=== PATIENT | male | born 1950 | race Caucasian/White ===

== ENCOUNTER 2017-08-31 19:41 | Emergency (ER) | payer MEDICARE, OTHER ==
[2017-08-31 19:51] VITALS: TEMP 98.2
[2017-08-31 20:25] VITALS: BP 172/116; PULSE 68; RESP 24; O2SAT 94
== END 2017-08-31 21:06 | DRG 156 ==
LOC: ED 19:41
DX: T17.298A Other foreign object in pharynx causing other injury, initial encounter (principal)
CPT/HCPCS: 71045; 99282

== ENCOUNTER 2018-05-06 12:56 | Emergency (ER) | payer MEDICARE, OTHER ==
[2018-05-06 13:33] LABS: BASOPHILS % (AUTO) 1 % (0-3); EOSINOPHILS % (AUTO) 3 % (0-9); HEMATOCRIT 45 % (39-53); HEMOGLOBIN 13.8 gm/dl (13.5-17.7); MEAN CORPUSCULAR HEMOGLOBIN 27.2 pg (27.0-32.0); MEAN CORPUSCULAR VOLUME 88 fL (80-100); MONOCYTES % (AUTO) 10.9 % (0-12); NEUTROPHILS % (AUTO) 63.3 % (37-80)
[2018-05-06 13:51] LABS: ALKALINE PHOSPHATASE 123 IU/L (46-116); ALT 9 IU/L (14-63); AST 18 IU/L (15-37); BILIRUBIN,TOTAL 0.6 mg/dl (0.2-1.0); BLOOD UREA NITROGEN 24 mg/dl (7-18); CALCIUM 8.3 mg/dl (8.5-10.1); CHLORIDE 107 mMol/L (98-107); CREATININE 1.42 mg/dl (0.80-1.30); GLUCOSE 92 mg/dl (74-106); SODIUM 142 mMol/L (136-145); TROP I < 0.017 ng/ml (0.000-0.056)
[2018-05-06 14:24] VITALS: RESP 20
[2018-05-06] MEDS ORDERED: SOLUMEDROL 125 MG/2 ML 125 MG/2 ML PDS IV ONE (14:30)
[2018-05-06] MEDS ORDERED: AZITHROMYCIN 250 MG TAB PO ONE (14:30)
[2018-05-06 14:33] VITALS: O2SAT 93
[2018-05-06] MEDS ORDERED: SOLUMEDROL 125 MG/2 ML 125 MG/2 ML PDS ONE (14:34)
[2018-05-06] MEDS ORDERED: AZITHROMYCIN 250 MG TAB ONE (14:34)
[2018-05-06] MEDS ORDERED: SODIUM CHLORIDE 0.9% FLUSH 10 ML SOL IV PRN (14:45)
[2018-05-06 15:14] VITALS: BP 120/97; PULSE 73; TEMP 96.5
== END 2018-05-06 15:25 | DRG 192 ==
LOC: ED 12:56
DX: J44.1 Chronic obstructive pulmonary disease with (acute) exacerbation (principal); R40.2362 Coma scale, best motor response, obeys commands, at arrival to emergency department; R40.2142 Coma scale, eyes open, spontaneous, at arrival to emergency department; R40.2242 Coma scale, best verbal response, confused conversation, at arrival to emergency department
CPT/HCPCS: 36415; 71045; 80053; 84484; 85025; 96374; 99284; J2930; A9270-GY

== ENCOUNTER 2018-05-19 13:15 | Emergency (ER) | payer MEDICARE, OTHER ==
[2018-05-19 13:36] LABS: BASOPHILS % (AUTO) 0 % (0-3); EOSINOPHILS % (AUTO) 2 % (0-9); HEMATOCRIT 44 % (39-53); HEMOGLOBIN 13.6 gm/dl (13.5-17.7); LYMPHOCYTES % (AUTO) 12.5 % (10-50); MEAN CORPUSCULAR HEMOGLOBIN 27.2 pg (27.0-32.0); MEAN CORPUSCULAR HGB CONC 30.6 gm/dl (32.0-36.0); MEAN CORPUSCULAR VOLUME 89 fL (80-100); MONOCYTES % (AUTO) 10.5 % (0-12); NEUTROPHILS % (AUTO) 74.2 % (37-80)
[2018-05-19 14:02] LABS: ALBUMIN 2.5 gm/dl (3.4-5.0); CALCIUM 8.1 mg/dl (8.5-10.1); CREATININE 1.34 mg/dl (0.80-1.30); TOTAL PROTEIN 6.5 gm/dl (6.4-8.2)
[2018-05-19] MEDS ORDERED: SOLUMEDROL 125 MG/2 ML 125 MG/2 ML PDS IV ONE (14:10)
[2018-05-19] MEDS ORDERED: SOLUMEDROL 125 MG/2 ML 125 MG/2 ML PDS ONE (14:14)
[2018-05-19] MEDS ORDERED: ALBUTEROL/IPRATROPIUM 1 VIAL SOL INH ONE (14:31)
[2018-05-19 14:32] LABS: ABG PH 7.29 (7.35-7.45)
[2018-05-19] MEDS ORDERED: ATROPINE 0.1 MG/ML SOL ONE (14:42)
[2018-05-19] MEDS ORDERED: ETOMIDATE 2 MG/ML SOL IV ONE ×4 (14:43→16:08)
[2018-05-19] MEDS ORDERED: ROCURONIUM BROMIDE 10 MG/ML SOL IV ONE ×4 (14:43→16:08)
[2018-05-19] MEDS ORDERED: SUCCINYLCHOLINE CHLORIDE 20 MG/ML SOL IV ONE ×2 (14:43→16:08)
[2018-05-19] MEDS ORDERED: SODIUM CHLORIDE 0.9% 1000ML 1,000 ML IV SCH (14:45)
[2018-05-19] MEDS ORDERED: MIDAZOLAM 2 MG/2 ML SOL ONE (14:56)
[2018-05-19] MEDS ORDERED: FENTANYL 100MCG/2ML SOL ONE (15:15)
[2018-05-19 16:03] VITALS: PULSE 64
[2018-05-19] MEDS ORDERED: FENTANYL 100MCG/2ML SOL IV ONE (16:08)
[2018-05-19] MEDS ORDERED: MIDAZOLAM 2 MG/2 ML SOL IV ONE (16:08)
[2018-05-19 16:17] VITALS: BP 128/96; RESP 14; O2SAT 92
[2018-05-19] MEDS ORDERED: SODIUM CHLORIDE 0.9% 1000ML 1,000 ML IV ONE (16:17)
[2018-05-19 17:44] VITALS: TEMP 97.7
== END 2018-05-19 16:20 | disposition short-term general hospital (02) | DRG 189 ==
LOC: ED 13:15
DX: J96.91 Respiratory failure, unspecified with hypoxia (principal)
CPT/HCPCS: 31500; 36415; 36600; 71045; 80053; 82803; 85025; 96365; 96374; 96375; 99291; J0330; J0461; J2250; J2930; J3010; A9270-GY; J3490

== ENCOUNTER 2018-06-28 23:06 | Inpatient (IN) | payer MEDICARE, OTHER ==
[2018-06-28] MEDS ORDERED: SODIUM CHLORIDE 0.9% 1000ML 1,000 ML IV SCH (23:45)
[2018-06-29 00:08] LABS: BASOPHILS % (AUTO) 1 % (0-3); EOSINOPHILS % (AUTO) 0 % (0-9); HEMATOCRIT 54 % (39-53); HEMOGLOBIN 16.4 gm/dl (13.5-17.7); LYMPHOCYTES % (AUTO) 14.5 % (10-50); MEAN CORPUSCULAR HEMOGLOBIN 27.8 pg (27.0-32.0); MEAN CORPUSCULAR HGB CONC 30.4 gm/dl (32.0-36.0); MEAN CORPUSCULAR VOLUME 91 fL (80-100); MONOCYTES % (AUTO) 8.8 % (0-12); NEUTROPHILS % (AUTO) 75.7 % (37-80)
[2018-06-29 00:22] LABS: CALCIUM 9.5 mg/dl (8.5-10.1); CARBON DIOXIDE 29.6 mEq/L (21-32); CREATININE 1.78 mg/dl (0.80-1.30); CRP INFLAMMATORY 4.81 mg/dl (0.00-0.33); TROP I 0.052 ng/ml (0.000-0.056)
[2018-06-29 00:29] LABS: APPEARANCE,URINE Clear; BILIRUBIN,URINE 2+ (NEGATIVE); COLOR,URINE Amber; GLUCOSE, URINE (UA) NEGATIVE (NEGATIVE); KETONES,URINE NEGATIVE (NEGATIVE); LEUKOCYTE ESTERASE ,URINE NEGATIVE (NEGATIVE); NITRATE,URINE NEGATIVE (NEGATIVE); OCCULT BLOOD,URINE NEGATIVE (NEG-TRACE)
[2018-06-29 00:42] LABS: BACTERIA 2+ (< 1+); CRYSTALS NEGATIVE (0-3 AVE/HPF); EPITHELIAL CELLS NEGATIVE (SQUAMOUS); ICTOTEST,URINE NEGATIVE (NEGATIVE); RBC,URINE 0-1 (0-3AV/HPF); WBC,URINE 0-1 (0-5AV/HPF)
[2018-06-29 01:33] LABS: TROP I 0.046 ng/ml (0.000-0.056)
[2018-06-29] MEDS ORDERED: SODIUM CHLORIDE 0.45% 1000 ML 1,000 ML IV ONE (01:57)
[2018-06-29] MEDS ORDERED: LOPERAMIDE HYDROCHLORIDE 2 MG CAP PO PRN (02:23)
[2018-06-29 04:18] LABS: CREATININE 1.61 mg/dl (0.80-1.30)
[2018-06-29] MEDS ORDERED: FUROSEMIDE 40 MG SOL IV ONE (04:41)
[2018-06-29] MEDS: SODIUM CHLORIDE 0.9% 1000ML 1,000 ML IV SCH ×2 (04:48→06:36)
[2018-06-29] MEDS: SODIUM CHLORIDE 0.45% 1000 ML 1,000 ML IV SCH ×4 (04:51→07:48)
[2018-06-29 06:18] LABS: CREATININE 1.45 mg/dl (0.80-1.30)
[2018-06-29 08:39] LABS: CREATININE 1.69 mg/dl (0.80-1.30)
[2018-06-29] MEDS ORDERED: VENLAFAXINE HCL 150 MG CER PO SCH (09:00)
[2018-06-29] MEDS ORDERED: TETRABENAZINE 12.5 MG PO SCH (09:00)
[2018-06-29] MEDS: DEXTROSE 1000 ML 1,000 ML IV SCH ×2 (09:39→16:48)
[2018-06-29 10:30] LABS: ABG PH 7.31 (7.35-7.45)
[2018-06-29 12:37] LABS: ABG PH 7.33 (7.35-7.45)
[2018-06-29 16:27] LABS: CARBON DIOXIDE 29.9 mEq/L (21-32); CREATININE 1.35 mg/dl (0.80-1.30); POTASSIUM 3.5 mMol/L (3.5-5.1)
[2018-06-29] MEDS ORDERED: DEXTROSE 1000 ML 1,000 ML IV SCH (17:15)
[2018-06-29] MEDS: SODIUM CHLORIDE 0.9% FLUSH 10 ML SOL IV SCH (18:30)
[2018-06-29 19:19] LABS: ABG PH 7.37 (7.35-7.45)
[2018-06-29] MEDS ORDERED: CEFTRIAXONE 1 GM PDS 1 GM in SODIUM CHLORIDE 0.9% 50 ML 50 ML IV ONE (19:28)
[2018-06-29] MEDS ORDERED: AZITHROMYCIN 500 MG PDS 500 MG in SODIUM CHLORIDE 0.9% 250 ML 250 ML IV ONE (19:28)
[2018-06-29] MEDS: ALBUTEROL NEB SOL 2.5MG/3ML 1 VIAL SOL INH PRN (19:44)
[2018-06-29] MEDS ORDERED: SOLUMEDROL 125 MG/2 ML 125 MG/2 ML PDS IV ONE (19:45)
[2018-06-29] MEDS ORDERED: SODIUM CHLORIDE 0.9% 50 ML 50 ML IV ONE (19:58)
[2018-06-29] MEDS ORDERED: AZITHROMYCIN 500 MG PDS IV ONE (19:58)
[2018-06-29] MEDS ORDERED: SODIUM CHLORIDE 0.9% 250 ML 250 ML IV ONE (19:58)
[2018-06-29] MEDS ORDERED: CEFTRIAXONE 1 GM PDS ONE (19:58)
[2018-06-29] MEDS ORDERED: OLANZAPINE 2.5 MG TAB PO SCH (21:00)
[2018-06-29] MEDS ORDERED: ACETAMINOPHEN 650 MG SUP PR PRN (23:50)
[2018-06-30] MEDS: ALBUTEROL NEB SOL 2.5MG/3ML 1 VIAL SOL INH PRN (01:26)
[2018-06-30] MEDS: SODIUM CHLORIDE 0.9% FLUSH 10 ML SOL IV SCH ×4 (01:43→17:10)
[2018-06-30 07:16] LABS: BASOPHILS % (AUTO) 0 % (0-3); EOSINOPHILS % (AUTO) 0 % (0-9); HEMATOCRIT 44 % (39-53); HEMOGLOBIN 13.7 gm/dl (13.5-17.7); LYMPHOCYTES % (AUTO) 6.8 % (10-50); MEAN CORPUSCULAR HEMOGLOBIN 27.8 pg (27.0-32.0); MEAN CORPUSCULAR HGB CONC 30.8 gm/dl (32.0-36.0); MEAN CORPUSCULAR VOLUME 90 fL (80-100); MONOCYTES % (AUTO) 2.9 % (0-12); NEUTROPHILS % (AUTO) 89.9 % (37-80)
[2018-06-30 07:21] LABS: CALCIUM 8.6 mg/dl (8.5-10.1); CARBON DIOXIDE 30.2 mEq/L (21-32); CREATININE 1.43 mg/dl (0.80-1.30); POTASSIUM 3.9 mMol/L (3.5-5.1)
[2018-06-30] MEDS ORDERED: AZITHROMYCIN 500 MG PDS IV SCH (08:00)
[2018-06-30] MEDS ORDERED: CEFTRIAXONE 1 GM PDS ONE ×2 (09:03→20:11)
[2018-06-30] MEDS ORDERED: SODIUM CHLORIDE 0.9% 50 ML 50 ML IV ONE ×2 (09:04→20:11)
[2018-06-30] MEDS: CEFTRIAXONE 1 GM PDS 1 GM in SODIUM CHLORIDE 0.9% 50 ML 50 ML IV SCH ×2 (09:15→20:21)
[2018-06-30] MEDS: DEXTROSE 1000 ML 1,000 ML IV SCH ×2 (09:15→23:35)
[2018-06-30] MEDS: ALBUTEROL/IPRATROPIUM 1 VIAL SOL INH SCH ×3 (09:19→20:21)
[2018-06-30] MEDS ORDERED: FUROSEMIDE 20mg SOL IV ONE (16:27)
[2018-07-01] MEDS: SODIUM CHLORIDE 0.9% FLUSH 10 ML SOL IV SCH ×6 (00:24→16:19)
[2018-07-01] MEDS: ALBUTEROL/IPRATROPIUM 1 VIAL SOL INH SCH ×4 (03:08→20:39)
[2018-07-01] MEDS: DEXTROSE 1000 ML 1,000 ML IV SCH (06:34)
[2018-07-01 07:27] LABS: BASOPHILS % (AUTO) 1 % (0-3); EOSINOPHILS % (AUTO) 1 % (0-9); HEMATOCRIT 40 % (39-53); HEMOGLOBIN 12.8 gm/dl (13.5-17.7); LYMPHOCYTES % (AUTO) 17.7 % (10-50); MEAN CORPUSCULAR HEMOGLOBIN 28.3 pg (27.0-32.0); MEAN CORPUSCULAR HGB CONC 31.8 gm/dl (32.0-36.0); MEAN CORPUSCULAR VOLUME 89 fL (80-100); MONOCYTES % (AUTO) 7.1 % (0-12)
[2018-07-01 07:38] LABS: ALBUMIN 2.3 gm/dl (3.4-5.0); BILIRUBIN,TOTAL 0.8 mg/dl (0.2-1.0); CALCIUM 8.3 mg/dl (8.5-10.1); CARBON DIOXIDE 32.2 mEq/L (21-32); CREATININE 1.16 mg/dl (0.80-1.30); TOTAL PROTEIN 6.3 gm/dl (6.4-8.2)
[2018-07-01 07:41] LABS: POTASSIUM 2.6 mMol/L (3.5-5.1)
[2018-07-01] MEDS ORDERED: POTASSIUM CHLORIDE 2 MEQ/ML 60 MEQ, LIDOCAINE HCL 1% MDV 2 ML in SODIUM CHLORIDE 0.9% 1... IV ONE (07:59)
[2018-07-01] MEDS ORDERED: AZITHROMYCIN 500 MG PDS IV ONE ×2 (08:15→09:49)
[2018-07-01] MEDS ORDERED: SODIUM CHLORIDE 0.9% 50 ML 50 ML IV ONE ×2 (08:40→20:25)
[2018-07-01] MEDS ORDERED: CEFTRIAXONE 1 GM PDS ONE ×2 (08:40→20:25)
[2018-07-01] MEDS: CEFTRIAXONE 1 GM PDS 1 GM in SODIUM CHLORIDE 0.9% 50 ML 50 ML IV SCH ×2 (08:56→20:39)
[2018-07-01] MEDS ORDERED: SODIUM CHLORIDE 0.9% 250 ML 250 ML IV ONE (09:49)
[2018-07-01] MEDS ORDERED: POTASSIUM CHLORIDE 2 MEQ/ML SOL IV ONE (09:49)
[2018-07-01] MEDS ORDERED: LIDOCAINE HCL 1% MPF 30 SOL ONE (09:54)
[2018-07-01] MEDS ORDERED: POTASSIUM CHLORIDE 10 MEQ TER PO ONE (19:15)
[2018-07-01] MEDS ORDERED: BISACODYL 10 MG SUP PR PRN (20:22)
[2018-07-02] MEDS: ALBUTEROL/IPRATROPIUM 1 VIAL SOL INH SCH ×4 (03:06→20:49)
[2018-07-02] MEDS: SODIUM CHLORIDE 0.9% FLUSH 10 ML SOL IV SCH ×4 (03:07→20:50)
[2018-07-02 07:19] LABS: BASOPHILS % (AUTO) 1 % (0-3); CALCIUM 8.2 mg/dl (8.5-10.1); CARBON DIOXIDE 28.6 mEq/L (21-32); EOSINOPHILS % (AUTO) 3 % (0-9); HEMATOCRIT 38 % (39-53); HEMOGLOBIN 12.3 gm/dl (13.5-17.7); MEAN CORPUSCULAR HEMOGLOBIN 28.5 pg (27.0-32.0); MEAN CORPUSCULAR HGB CONC 32.5 gm/dl (32.0-36.0); MEAN CORPUSCULAR VOLUME 88 fL (80-100); MONOCYTES % (AUTO) 9.8 % (0-12); NEUTROPHILS % (AUTO) 67.5 % (37-80); POTASSIUM 3.4 mMol/L (3.5-5.1)
[2018-07-02] MEDS ORDERED: POTASSIUM CHLORIDE 2 MEQ/ML 20 MEQ, LIDOCAINE HCL 1% MDV 2 ML in SODIUM CHLORIDE 0.9% 2... IV ONE (07:51)
[2018-07-02] MEDS: POTASSIUM CHLORIDE 10 MEQ TER PO SCH ×2 (08:42→11:08)
[2018-07-02] MEDS: VENLAFAXINE HCL 150 MG CER PO SCH (08:47)
[2018-07-02] MEDS ORDERED: TETRABENAZINE 12.5 MG PO SCH (09:00)
[2018-07-03] MEDS: SODIUM CHLORIDE 0.9% FLUSH 10 ML SOL IV SCH ×2 (00:31→11:02)
[2018-07-03] MEDS: ALBUTEROL/IPRATROPIUM 1 VIAL SOL INH SCH ×2 (02:12→08:44)
[2018-07-03 07:37] LABS: CALCIUM 8.8 mg/dl (8.5-10.1); CARBON DIOXIDE 27.1 mEq/L (21-32); CREATININE 0.98 mg/dl (0.80-1.30); POTASSIUM 3.9 mMol/L (3.5-5.1)
[2018-07-03 07:49] VITALS: BP 143/96; PULSE 48; RESP 24; TEMP 98.3
[2018-07-03] MEDS: VENLAFAXINE HCL 150 MG CER PO SCH (08:43)
[2018-07-03 10:54] VITALS: O2SAT 94
== END 2018-07-03 10:20 | DRG 178 ==
LOC: ED 23:06 → ACUTE CARE 06-29 01:55
PROVIDERS: ADMIT Family Medicine; ATTEND Family Medicine
PROC: F01ZBFZ Bed Mobility Assessment using Assistive, Adaptive, Supportive or Protective Equipment (ICD-10-PCS; principal; 2018-07-01)
PROC: F01ZCFZ Transfer Assessment using Assistive, Adaptive, Supportive or Protective Equipment (ICD-10-PCS; 2018-07-01)
DX: J44.1 Chronic obstructive pulmonary disease with (acute) exacerbation (principal); E87.0 Hyperosmolality and hypernatremia; R41.0 Disorientation, unspecified; R50.9 Fever, unspecified; J69.0 Pneumonitis due to inhalation of food and vomit; G10 Huntington's disease; E86.0 Dehydration; E87.6 Hypokalemia; R53.83 Other fatigue
CPT/HCPCS: 31720; 36415; 36600; 70450; 71045; 80048; 80053; 81001; 82565; 82803; 83880; 84132; 84295; 84484; 85025; 87040; 87070; 87088; 87205; 93005; 93012; 94640; 96365; 99070; 99221; 99285; J0456; J0696; J1940; J2930; J3480; J7613; A9270-GY; J2001

== ENCOUNTER 2018-10-25 15:46 | Emergency (ER) | payer MEDICARE, OTHER ==
[2018-10-25 16:29] LABS: BASOPHILS % (AUTO) 0 % (0-3); EOSINOPHILS % (AUTO) 0 % (0-9); HEMATOCRIT 42 % (39-53); HEMOGLOBIN 13.7 gm/dl (13.5-17.7); LYMPHOCYTES % (AUTO) 5.3 % (10-50); MEAN CORPUSCULAR HEMOGLOBIN 28.1 pg (27.0-32.0); MEAN CORPUSCULAR HGB CONC 32.6 gm/dl (32.0-36.0); MEAN CORPUSCULAR VOLUME 86 fL (80-100); MONOCYTES % (AUTO) 4.7 % (0-12); NEUTROPHILS % (AUTO) 89.5 % (37-80)
[2018-10-25 16:35] LABS: CALCIUM 8.4 mg/dl (8.5-10.1); CARBON DIOXIDE 28.1 mEq/L (21-32); CREATININE 1.51 mg/dl (0.80-1.30); POTASSIUM 4.2 mMol/L (3.5-5.1)
[2018-10-25] MEDS ORDERED: LEVOFLOXACIN 25 MG/ML 500 MG in SODIUM CHLORIDE 0.9% 100 ML 100 ML IV ONE (17:03)
[2018-10-25] MEDS ORDERED: LEVOFLOXACIN 25 MG/ML SOL IV ONE (17:21)
[2018-10-25] MEDS: SODIUM CHLORIDE 0.9% 1000ML 1,000 ML IV SCH ×2 (17:30→18:16)
[2018-10-25 19:19] VITALS: BP 124/77; PULSE 78; RESP 22; TEMP 97.8; O2SAT 93
== END 2018-10-25 19:50 | DRG 204 ==
LOC: ED 15:46
DX: R06.2 Wheezing (principal); R05 Cough
CPT/HCPCS: 36415; 71045; 80048; 85025; 96365; 99070; 99283; 99284; J1956